=== PATIENT | female | born 1965 | race Caucasian/White ===

== ENCOUNTER → 2023-04-21 | Outpatient (CLI) | payer OTHER ==
[2023-04-21 09:11] LABS: BASO # 0.1 10*3/uL (0.0-0.1); BASO % 1.1 % (0.0-1.0); EOS # 0.3 10*3/uL (0.0-0.4); EOS % 4.5 % (1.0-4.0); HEMATOCRIT 41.8 % (37.0-47.0); LYMPH # 2.2 10*3/uL (1.3-4.4); LYMPH % 39.1 % (27.0-41.0); MEAN CELL VOLUME 85.5 fl (81.0-99.0); MEAN CORPUSCULAR HGB 28.4 pg (27.0-31.0); MEAN CORPUSCULAR HGB CONC 33.3 g/dl (33.0-37.0); MEAN PLATELET VOLUME 10.1 fl (9.6-12.3); MONO # 0.5 10*3/uL (0.1-1.0); MONO % 8.4 % (3.0-9.0); NEUT # 2.6 10*3/uL (2.3-7.9); NEUT % 46.7 % (47.0-73.0); PLATELET COUNT AUTOMATED 285 10*3/uL (130-400); RED BLOOD COUNT 4.89 10*6/uL (4.10-5.10); RED CELL DISTRI WIDTH 13.6 % (0-14.5); WHITE BLOOD COUNT 5.6 10*3/uL (4.8-10.8)
[2023-04-21 09:40] LABS: ALKALINE PHOSPHATASE 115 U/L (46-116); CHLORIDE 107 mmol/L (98-107); POTASSIUM 4.2 mmol/L (3.4-5.1); SGPT/ALT 19 U/L (5-49); TOTAL PROTEIN 7.4 gm/dL (6.0-8.0)
[2023-04-21 09:48] LABS: BUN < 5 mg/dl (9-23)
[2023-04-21 10:04] LABS: VITAMIN D, 25-HYDROXY 40.7 ng/mL (30-100)
[2023-04-22 13:06] LABS: CREATININE URINE 124.8 mg/dL (20.0-300.0); OXYCODONE/OXYMORPHONE Negative ng/mL (Cutoff=300); URINE AMPHETAMINES Negative ng/mL (Cutoff=500); URINE BARBITURATES Negative ng/mL (Cutoff=200); URINE BENZODIAZEPINES Negative ng/mL (Cutoff=200); URINE CANNABINOID Negative ng/mL (Cutoff=50); URINE COCAINE Negative ng/mL (Cutoff=150); URINE OPIATES Negative ng/mL (Cutoff=300); URINE PH 5.3 (4.5-8.9)
== END | disposition home or self-care (01) ==
LOC: LAB 08:29
PROVIDERS: ATTEND Nurse Practitioner Family
DX: E55.9 Vitamin D deficiency, unspecified (principal); R53.83 Other fatigue; F33.1 Major depressive disorder, recurrent, moderate; F43.12 Post-traumatic stress disorder, chronic; F41.1 Generalized anxiety disorder

== ENCOUNTER 2023-04-28 16:50 | Emergency (ER) | payer OTHER ==
[~2023-04-28] VITALS: Ht 157.4 cm; Wt 74.8 kg
== END 2023-04-28 20:55 | disposition home or self-care (01) ==
LOC: ED 16:50
DX: S60.051A Contusion of right little finger without damage to nail, initial encounter (principal); Z88.6 Allergy status to analgesic agent; Z88.5 Allergy status to narcotic agent; Z90.710 Acquired absence of both cervix and uterus; W22.8XXA Striking against or struck by other objects, initial encounter; Y93.89 Activity, other specified; Y92.89 Other specified places as the place of occurrence of the external cause; Y99.8 Other external cause status